=== PATIENT | male | born 1955 | race Caucasian/White ===

== ENCOUNTER → 2021-07-12 15:16 | Outpatient (BNVA) | payer OTHER, SELFPAY | PROVIDERS: PCP Physician Assistant Medical; Visit Provider Urology ==

== ENCOUNTER → 2022-07-24 08:54 | Outpatient (BNVA) | payer OTHER, SELFPAY | PROVIDERS: PCP Physician Assistant Medical; Visit Provider Urology | DX: Z13.89 Encounter for screening for other disorder (principal) ==

== ENCOUNTER → 2022-10-23 10:21 | Outpatient (BNVA) | payer OTHER, SELFPAY | PROVIDERS: PCP Physician Assistant Medical; Visit Provider Urology ==

== ENCOUNTER 2023-05-22 10:10 | Outpatient (AMB) | payer OTHER, SELFPAY ==
--- NOTE | 2023-05-22 10:22 | A.OFFVIS_ITS ---
Intake Intake Visit Reasons: PSA follow up(set) Intake Note: Patient is Present for Follow Up PSA Urology Medication: Alfuzosin, Finasteride, Sildenafil Antibiotic Allergies: None Blood Thinners: none PVR: Compliants: Allergies Seasonal Allergies Allergy (Mild, Verified 10/23/22 10:29) Unknown HPI HPI Comments History of Present Illness Details Kuldeep is a pleasant male. He is a patient of Dr Hawkins. He is seen for the following urologic conditions - elevated PSA - Lower urinary tract symptoms - erectile dysfunction Doing well with urination Happy with current voiding performance Can try stopping alfuzosin Discussed PSA result which is lowest that he has seen in many years Sildenafil still effective for erections 6 month follow-up lab work tele Elevated PSA with BPH Longstanding BPH Treatment with alfuzosin 10 mg and finasteride PSA that has ranged between 4.5 and 5.5 Prostate biopsy 11/25 negative PSA 11/29 3.9, 08/02 3.9, 06/01 2.2 Erectile Dysfunction Progressive Cardiovascular risk factors include heart attack at age 62, dyslipidemia, hypertensive Is able to obtain but cannot maintain erection Libido normal Trial sildenafil [facility] Medical History [place] (myocardial infarction) NSTEMI (non-ST elevated myocardial infarction) Actinic keratitis CAD (coronary artery disease) of artery bypass graft Heartburn Hyperlipidemia Sleep apnea Elevated PSA Renal stones Surgical History History of surgery Review of Systems Const Denies chills and Denies fever(s) Card Reports no additional complaints and Denies syncope Resp Denies cough GI Denies abdominal pain and Denies heartburn Reports as per HPI and Denies change in libido Neuro Denies syncope Psych Denies change in libido Endo Denies change in libido Physical Exam Const General: cooperative, healthy appearing, comfortable and no acute distress Orientation/consciousness: patient oriented x3 HEENT Face and sinus: Yes normal facial exam Mouth: moist mucous membranes Neck Neck: Yes normal visual inspection, Yes full ROM and Yes trachea midline Chest Chest palpation & inspection: normal inspection of the chest Resp Effort & Inspection: normal respiratory effort, able to speak in complete sentences and no respiratory distress GI Inspection: Yes normal to inspection Back/Spine/Pelvis Cervical Spine: normal cervical lordosis Thoracic/Lumbar Spine: thoracic and lumbar spine normal to inspection Skin General skin exam: no rashes or lesions noted Neuro General: patient oriented x3, gait normal, tone normal and moves all extremities Extrem General: Yes normal to inspection and Yes capillary refill normal Assessment & Plan Assessment & Plan (1) Elevated PSA: Code(s): R97.20 - Elevated prostate specific antigen [PSA] (2) Erectile dysfunction: Code(s): N52.9 - Male erectile dysfunction, unspecified (3) Renal stones: Code(s): N20.0 - Calculus of kidney Plan Six month follow-up lab work Orders: Orders Prostate Specific Antigen 6 Months R97.20 - Elevated prostate specific antigen [PSA] Patient Instructions: Imaging studies, laboratory and physical exam results were discussed and reviewed in detail. No major barriers to patient understanding were identified. An opportunity to ask questions regarding the treatment plan was provided. All questions were answered. The patient expressed understanding and agreement with the above treatment plan. The patient is aware they should contact our office by phone for worsening of their current condition or the appearance of new urologic symptoms. Compliance is encouraged with any medications and followup testing that is ordered. It is a privilege to participate in the urologic care of your patient. If you have any questions or concerns regarding treatment for the above conditions, or other urologic issues, please do not hesitate to contact me. The office telephone contact is [phone]. This note is constructed using voice recognition software. While every effort has been made to ensure accuracy supervisory civil engineer errors may have been included. Yours sincerely, Dr Alberto Tadeo MD, [facility] - Urology Providers of Expert, Compassionate Care for the Genitourinary System Coding Level of Care Code Est Pt Level 3 (01375) Diagnoses Elevated PSA R97.20 Erectile dysfunction N52.9 Renal stones N20.0
== END 2023-05-22 10:46 | disposition home or self-care (01) ==
PROVIDERS: PCP Physician Assistant Medical; Visit Provider Urology
DX: R97.20 Elevated prostate specific antigen [PSA] (principal); N52.9 Male erectile dysfunction, unspecified; N20.0 Calculus of kidney
CPT/HCPCS: 99213

== ENCOUNTER → 2023-05-22 10:10 | Outpatient (BNVA) | payer OTHER, SELFPAY | PROVIDERS: PCP Physician Assistant Medical; Visit Provider Urology ==

== ENCOUNTER 2023-11-19 08:52 | Outpatient (AMB) | payer OTHER, SELFPAY ==
--- NOTE | 2023-11-19 09:03 | MHC.OFFVIS ---
Intake Visit Reasons: 6m/PSA(set) Intake Note: Patient is Present for Follow Up PSA Urology Medication: Finasteride, Sildenafil Antibiotic Allergies:None Blood Thinners: None Patient states medication regimen is working well no issues Allergies Seasonal Allergies Allergy (Mild, Verified 11/19/23 09:10) Unknown HPI Comments Details: Kuldeep is a pleasant male. He is a patient of Dr Hawkins. He is seen for the following urologic conditions - elevated PSA - Lower urinary tract symptoms - erectile dysfunction Doing well with urination Happy with current voiding performance Off alfuzosin Cut back finasteride to Saturday, Saturday, Saturday Slight rise PSA Repeat in 6 months Sildenafil still effective for erections Elevated PSA with BPH Longstanding BPH Treatment with alfuzosin 10 mg and finasteride No family history of prostate issues PSA that has ranged between 4.5 and 5.5 Prostate biopsy 11/25 negative PSA 11/29 3.9, 08/02 3.9, 06/01 2.2, 10/31 3.2 Erectile Dysfunction Progressive Cardiovascular risk factors include heart attack at age 62, dyslipidemia, hypertensive Is able to obtain but cannot maintain erection Libido normal Uses intermittent sildenafil [facility] Medical History [place] (myocardial infarction) NSTEMI (non-ST elevated myocardial infarction) Actinic keratitis CAD (coronary artery disease) of artery bypass graft Heartburn Hyperlipidemia Sleep apnea Elevated PSA Renal stones Surgical History History of surgery Review of Systems Const Denies chills and Denies fever(s) Card Reports no additional complaints and Denies syncope Resp Denies cough GI Denies abdominal pain and Denies heartburn Reports as per HPI and Denies change in libido Neuro Denies syncope Psych Denies change in libido Endo Denies change in libido Physical Exam Const General: cooperative, healthy appearing, comfortable and no acute distress Orientation/consciousness: patient oriented x3 HEENT Face and sinus: Yes normal facial exam Mouth: moist mucous membranes Neck Neck: Yes normal visual inspection, Yes full ROM and Yes trachea midline Chest Chest palpation & inspection: normal inspection of the chest Resp Effort & Inspection: normal respiratory effort, able to speak in complete sentences and no respiratory distress GI Inspection: Yes normal to inspection Back/Spine/Pelvis Cervical Spine: normal cervical lordosis Thoracic/Lumbar Spine: thoracic and lumbar spine normal to inspection Skin General skin exam: no rashes or lesions noted Neuro General: patient oriented x3, gait normal, tone normal and moves all extremities Extrem General: Yes normal to inspection and Yes capillary refill normal Assessment & Plan Assessment & Plan (1) Erectile dysfunction: Code(s): N52.9 - Male erectile dysfunction, unspecified Category: Medical (2) Renal stones: Code(s): N20.0 - Calculus of kidney Category: Medical (3) Elevated PSA: Code(s): R97.20 - Elevated prostate specific antigen [PSA] Category: Medical Plan Six-month follow-up Orders: Orders Prostate Specific Antigen 6 Months R97.20 - Elevated prostate specific antigen [PSA] Medications: Refilled finasteride 5 mg PO DAILY 90 days 90 tabs 1RF N13.8 - Other obstructive and reflux uropathy, N40.1 - Benign prostatic hyperplasia with lower urinary tract symptoms, R33.9 - Retention of urine, unspecified, R97.20 - Elevated prostate specific antigen [PSA] Patient Instructions: Imaging studies, laboratory and physical exam results were discussed and reviewed in detail. No major barriers to patient understanding were identified. An opportunity to ask questions regarding the treatment plan was provided. All questions were answered. The patient expressed understanding and agreement with the above treatment plan. The patient is aware they should contact our office by phone for worsening of their current condition or the appearance of new urologic symptoms. Compliance is encouraged with any medications and followup testing that is ordered. It is a privilege to participate in the urologic care of your patient. If you have any questions or concerns regarding treatment for the above conditions, or other urologic issues, please do not hesitate to contact me. The office telephone contact is [phone]. This note is constructed using voice recognition software. While every effort has been made to ensure accuracy director of convention services errors may have been included. Yours sincerely, Dr Alberto Tadeo MD, [facility] - Urology Providers of Expert, Compassionate Care for the Genitourinary System Coding Level of Care Code Est Pt Level 3 (43709) Diagnoses Erectile dysfunction N52.9 Renal stones N20.0 Elevated PSA R97.20
== END 2023-11-19 09:56 | disposition home or self-care (01) ==
PROVIDERS: PCP Physician Assistant Medical; Visit Provider Urology
DX: N52.9 Male erectile dysfunction, unspecified (principal); N20.0 Calculus of kidney; R97.20 Elevated prostate specific antigen [PSA]
CPT/HCPCS: 99213

== ENCOUNTER → 2023-11-19 08:52 | Outpatient (BNVA) | payer OTHER, SELFPAY | PROVIDERS: PCP Physician Assistant Medical; Visit Provider Urology ==

== ENCOUNTER 2024-05-21 08:33 | Outpatient (AMB) | payer OTHER, SELFPAY ==
--- NOTE | 2024-05-21 08:35 | MHC.OFFVIS ---
Intake Visit Reasons: 6M/PSA(set) Intake Note: Patient is present for 6M/PSA Urology Medication: Antibiotic Allergy:SILDENAFIL,FINASTERIDE Blood Thinner:NONE Indoor Plant Technician Required: No Allergies Seasonal Allergies Allergy (Mild, Verified 05/21/24 08:36) Unknown HPI Comments Details: Kuldeep is a pleasant male. He is a patient of Dr Hawkins. He is seen for the following urologic conditions - elevated PSA - Lower urinary tract symptoms - erectile dysfunction Six-month follow-up PSA remained stable Monotherapy finasteride Saturday, Saturday, Saturday Sildenafil still effective for erections Elevated PSA with BPH Longstanding BPH Treatment with alfuzosin 10 mg and finasteride No family history of prostate issues PSA that has ranged between 4.5 and 5.5 Prostate biopsy 11/25 negative PSA 11/29 3.9, 08/02 3.9, 06/01 2.2, 10/31 3.2, 06/02 3.1 Erectile Dysfunction Progressive Cardiovascular risk factors include heart attack at age 62, dyslipidemia, hypertensive Is able to obtain but cannot maintain erection Libido normal Uses intermittent sildenafil [facility] Medical History [place] (myocardial infarction) NSTEMI (non-ST elevated myocardial infarction) Actinic keratitis CAD (coronary artery disease) of artery bypass graft Heartburn Hyperlipidemia Sleep apnea Elevated PSA Renal stones Surgical History History of surgery Review of Systems Const Denies chills and Denies fever(s) Card Reports no additional complaints and Denies syncope Resp Denies cough GI Denies abdominal pain and Denies heartburn Reports as per HPI and Denies change in libido Neuro Denies syncope Psych Denies change in libido Endo Denies change in libido Physical Exam Const General: cooperative, healthy appearing, comfortable and no acute distress Orientation/consciousness: patient oriented x3 HEENT Face and sinus: Yes normal facial exam Mouth: moist mucous membranes Neck Neck: Yes normal visual inspection, Yes full ROM and Yes trachea midline Chest Chest palpation & inspection: normal inspection of the chest Resp Effort & Inspection: normal respiratory effort, able to speak in complete sentences and no respiratory distress GI Inspection: Yes normal to inspection Back/Spine/Pelvis Cervical Spine: normal cervical lordosis Thoracic/Lumbar Spine: thoracic and lumbar spine normal to inspection Skin General skin exam: no rashes or lesions noted Neuro General: patient oriented x3, gait normal, tone normal and moves all extremities Extrem General: Yes normal to inspection and Yes capillary refill normal Assessment & Plan Assessment & Plan (1) Elevated PSA: Code(s): R97.20 - Elevated prostate specific antigen [PSA] Category: Medical (2) Erectile dysfunction: Code(s): N52.9 - Male erectile dysfunction, unspecified Category: Medical Plan Continue current medications Orders: Orders Prostate Specific Antigen 364 Days R97.20 - Elevated prostate specific antigen [PSA] Medications: Refilled sildenafil administer 60 minutes before intended activity 100 mg PO ONCE PRN 30 tabs 1RF sexual activity 30 days E11.69 - Type 2 diabetes mellitus with other specified complication, N52.1 - Erectile dysfunction due to diseases classified elsewhere, N52.9 - Male erectile dysfunction, unspecified Patient Instructions: Imaging studies, laboratory and physical exam results were discussed and reviewed in detail. No major barriers to patient understanding were identified. An opportunity to ask questions regarding the treatment plan was provided. All questions were answered. The patient expressed understanding and agreement with the above treatment plan. The patient is aware they should contact our office by phone for worsening of their current condition or the appearance of new urologic symptoms. Compliance is encouraged with any medications and followup testing that is ordered. It is a privilege to participate in the urologic care of your patient. If you have any questions or concerns regarding treatment for the above conditions, or other urologic issues, please do not hesitate to contact me. The office telephone contact is [phone]. This note is constructed using voice recognition software. While every effort has been made to ensure accuracy deputy bailiff errors may have been included. Yours sincerely, Dr Alberto Tadeo MD, [facility] - Urology Providers of Expert, Compassionate Care for the Genitourinary System Coding Level of Care Code Est Pt Level 3 (45838) Diagnoses Elevated PSA R97.20 Erectile dysfunction N52.9
== END 2024-05-21 09:25 | disposition home or self-care (01) ==
PROVIDERS: PCP Physician Assistant Medical; Visit Provider Urology
DX: R97.20 Elevated prostate specific antigen [PSA] (principal); N52.9 Male erectile dysfunction, unspecified
CPT/HCPCS: 99213

== ENCOUNTER → 2024-05-21 08:33 | Outpatient (BNVA) | payer OTHER, SELFPAY | PROVIDERS: PCP Physician Assistant Medical; Visit Provider Urology ==

== ENCOUNTER 2025-05-25 08:27 | Outpatient (AMB) | payer OTHER, SELFPAY ==
--- OUTSIDE RECORDS SUMMARY | 2025-05-20 07:55 | XMS_ITS | Encounter Summary ---
[facility] [place] [address] Care Team Providers Care Baby Formula Mixer Name Role Phone Enrico Hawkins Primary Care Provider [phone] Reason for Referral * Hospital - Outpatient (Routine) - Closed Specialty Diagnoses / Procedures Referred By Cristy mera Referred To Contact Gastroenterology Diagnoses Colon cancer screening Procedures COLONOSCOPY Anesthesia - MAC; [facility] ENDOSCOPY Spencer Brownlee MD [address] [address] Phone: tel: fax: [facility] Endoscopy [address] [place] [address] Phone: tel: Referral ID Status Reason Start Date Expiration Date Visits Re quested Visits Authorized [id number] Closed 03/25/2025 03/25/2026 1 1 Reason for Visit * Auth/Cert (Routine) Specialty Diagnoses / Procedures Referred By Cristy mera Referred To Contact Diagnoses Encounter for screening for malignant neoplasm of colon Procedures COLONOSCOPY [place] [address] [facility] Endoscopy [address] [place] [address] Phone: tel: Referral ID Status Reason Start Date Expiration Date Visits Re quested Visits Authorized [id number] 1 1 Encounter Details Date Type Department Care Team (Latest Contact Info) Description 05/20/2025 7:55 AM EST - 05/20/2025 11:59 PM EST Hospital Encounter [facility] Endoscopy [address] [place] [address] Juan Luis Walton MD [address] [facility] [address] [place] [address] Spencer Brownlee MD 299 [facility] [address] [place] [address] Dimas Colvin CRNA [address] [place] [address] Colon cancer screening Discharge Disposition: Home or Self Care Social History Tobacco Use Types Packs/Day Years Used Date Smoking Tobacco: Never Smokeless Tobacco: Never Alcohol Use Standard Drinks/Week Comments Yes 8 (1 standard drink = 0.6 oz pur e alcohol) WEEKENDS Housing Instability Answer Date Recorde d Are you worried that in the next 2 months you may not have stable housing? No 09/23/2024 Food Access & Nutrition Answer Date Rec orded Do you have access to a vari ety of food including fruits and vegetables? Yes 09/23/2024 Access to Healthcare Answer Date Record ed Within the last 3 months, alyssa noe many times did you visit the emergency department for your medical care? 0 09/23/2024 Health Literacy Answer Date Recorded How often do you need to hav e someone help you when you read instructions, pamphlets, or other written material from your doctor or pharmacy? Never 09/23/2024 Caregiver: How often do you need to have someone help you when you read instructions, pamphlets, or other written material from your doctor or pharmacy? Not on file 09/23/2024 Financial Risk Answer Date Recorded How hard is it for you to pa y for the very basics like food, housing, medical care, and air conditioning / heating? Not very hard 09/23/2024 Transportation Answer Date Recorded Has the lack of transportati on kept you from meetings, work, or from getting things needed for daily living? No Has the lack of transportati on kept you from medical appointments or from getting medications? No 09/23/2024 Social Isolation Answer Date Recorded How often do you feel lonely or isolated from th ose around you? Never 09/23/2024 Food Risk Answer Date Recorded Within the past 12 months we worried whether our food would run out before we got money to buy more. Never true 09/23/2024 Within the past 12 months th e food we bought just didn't last and we didn't have money to get more. Never true 09/23/2024 Dependent Care Answer Date Recorded Do you need help finding or paying for care for your loved ones. For example, children's court magistrate or elderly care for an older adult? No 09/23/2024 Education Answer Date Recorded Do you think completing more education or training, like finishing a GED, going to college, or learning a trade, would be helpful for you? N/A 09/23/2024 Employment and Income Answer Date Recor ded During the last four weeks, have you been actively looking for work? No 09/23/2024 Living Situation Answer Date Recorded What is your living situation? 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 Not on file Not on file Not on file documented as of this encounter Last Filed Vital Signs Vital Sign Reading Time Taken Comments Blood Pressure 139/91 05/20/2025 10:18 AM EST Pulse 67 05/20/2025 10:18 AM EST Temperature 36.7 C (98.1 F) 05/20/2025 9:58 AM EST Respiratory Rate 20 05/20/2025 10:18 AM EST Oxygen Saturation 100% 05/20/2025 10:18 AM EST Inhaled Oxygen Concentration - - Weight 85.7 kg (189 lb) 05/20/2025 8:56 AM EST Height 177.8 cm (5' 10 ) 05/20/2025 8:56 AM EST Body Mass Index 27.12 05/20/2025 8:56 AM EST documented in this encounter Discharge Instructions * Attachments The following attachments cannot be sent through Care Everywhere. * Colonoscopy: Post op (Swedish) * Diverticulosis (Swedish) * Colon Polyps (Swedish) documented in this encounter Medications at Time of Discharge acetaminophen (TYLENOL 8 HOUR) 650 mg 8 hr tablet Take 1 tablet (650 mg total) by mouth every 8 (eight) hours if needed. 12/10/2023 aspirin 81 mg EC tablet Take 1 tablet (81 mg total) by mouth 1 (one) time each day. 04/10/2012 atorvastatin (LIPITOR) 80 mg tablet Take 1 tablet (80 mg total) by mouth 1 (one) time each day. 90 tablet 3 07/20/2024 azelastine (ASTELIN) 137 mcg (0.1 %) nasal spray ADMINISTER 2 SPRAYS INTO EACH NOSTRIL 2 TIMES A DAY. 30 mL 1 04/20/2025 bisacodyL (DULCOLAX) 5 mg EC tablet Take 2 tablets by mouth right before beginning bowel prep. See instructions provided by the office 2 tablet 05/03/2025 buPROPion SR (WELLBUTRIN SR) 200 mg 12 hr tablet TAKE 1 TABLET BY MOUTH TWICE DAILY 180 tablet 3 02/01/2025 cetirizine (ZyrTEC) 10 mg tablet Take 1 tablet (10 mg total) by mouth 1 (one) time each day. 04/15/2023 diclofenac (VOLTAREN) 1 % topical gel Apply 2 g topically 2 (two) times a day. 180 g 11 09/30/2024 FA/niacinamide/cu pric ox/Zn ox (TL NICOTINAMIDE ORAL) Take by mouth. Take one capsule twice daily finasteride (PROSCAR) 5 mg tablet 1 Tab mon, wens, fri 03/23/2024 fluticasone propionate (FLONASE) 50 mcg/actuation nasal spray 03/31/2024 ibuprofen (ADVIL,MOTRIN) 800 mg tablet TAKE 1 TABLET BY MOUTH EVERY 8 HOURS NEEDED FOR PAIN 90 tablet 1 05/19/2024 losartan (Cozaar) 25 mg tablet Take 1 tablet (25 mg total) by mouth 1 (one) time each day. 30 each 5 01/26/2025 metoprolol succinate (TOPROL-XL) 25 mg 24 hr tablet Take 1 tablet (25 mg total) by mouth 1 (one) time each day. Do not crush or chew. 90 each 2 12/04/2024 montelukast (SINGULAIR) 10 mg tablet TAKE 1 TABLET BY MOUTH EVERYDAY AT BEDTIME 90 tablet 1 04/01/2025 mv-min/folic/vit K/lycop/coQ10 (DAILY MULTIVITAMIN ORAL) 1 po qd omeprazole (PriLOSEC) [address] capsule every other day. 4 times a week 01/15/2018 polyethylene glycol (Golytely) 236-22.74-6.74 -5.86 gram solution Take 4L by mouth once for one dose. May substitue any PEG. Starting at 2PM the day before your procedure drink 1 8oz glasses at your own pace until you complete half of the gallon. Finish 2nd half of the gallon at 8PM. 4000 mL 05/03/2025 tiZANidine (ZANAFLEX) 4 mg tablet Take 1 tablet (4 mg total) by mouth 3 (three) times a day if needed for muscle spasms. 30 tablet 01/18/2025 UNABLE TO FIND CPAP Historical (HISTORICAL CPAP) Sig - Route: Inhale 7 cm into the lungs at bedtime. Via nasal mask, SMS - Inhalation vit C/E/Zn/coppr/lute in/zeaxan (PRESERVISION AREDS-2 ORAL) Take by mouth daily. documented as of this encounter Discharge Disposition Disposition Code Departure Means Destination Home or Self Care documented in this encounter Progress Notes * Jonny Mixon RN - 05/20/2025 9:00 AM EST Problem: Cognitive:Periop Procedure - Minor Goal: Knowledge of disease or condition will improve Outcome: Adequate for Discharge Problem: Sensory:Periop Procedure - Minor Goal: Demonstrates/reports adequate pain control Outcome: Adequate for Discharge * Gisela Kwong RN - 05/20/2025 8:49 AM EST Problem: Cognitive:Periop Procedure - Minor Goal: Knowledge of disease or condition will improve Outcome: Progressing Problem: Sensory:Periop Procedure - Minor Goal: Demonstrates/reports adequate pain control Outcome: Progressing PATIENT VERBALIZES UNDERSTANDING OF DISCHARGE INSTRUCTIONS documented in this encounter H&P Notes * Spencer Brownlee MD - 05/20/2025 9:00 AM EST Pre-Op Diagnosis: Screen Proposed Procedure: colon Performing Surgeon/MD/Endoscopist: Spencer Brownlee MD Medical/History: Medical History[1]Surgical History[2] Medications/Allergies: Prior to Admission medications Medication Sig Start Date End Date Taking? Authorizing Provider aspirin 81 mg EC tablet Take 1 tablet (81 mg total) by mouth 1 (one) time each day. 04/10/12 Yes Historical Provider, atorvastatin (LIPITOR) 80 mg tablet Take 1 tablet (80 mg total) by mouth 1 (one) time each day. 07/20/24 Yes ELIO Gooden azelastine (ASTELIN) 137 mcg (0.1 %) nasal spray ADMINISTER 2 SPRAYS INTO EACH NOSTRIL 2 TIMES A DAY. 04/20/25 Yes ELIO Kimball cetirizine (ZyrTEC) 10 mg tablet Take 1 tablet (10 mg total) by mouth 1 (one) time each day. 04/15/23 Yes Historical Provider, finasteride (PROSCAR) 5 mg tablet 1 Tab sat, , sat03/23/24 Yes Historical Provider, fluticasone propionate (FLONASE) 50 mcg/actuation nasal spray 03/31/24 Yes Historical Provider, acetaminophen (TYLENOL 8 HOUR) 650 mg 8 hr tablet Take 1 tablet (650 mg total) by mouth every 8 (eight) hours if needed. 12/10/23 Historical Provider, bisacodyL (DULCOLAX) 5 mg EC tablet Take 2 tablets by mouth right before beginning bowel prep. See instructions provided by the office 05/03/25 Spencer Brownlee MD buPROPion SR (WELLBUTRIN SR) 200 mg 12 hr tablet TAKE 1 TABLET BY MOUTH TWICE DAILY 02/01/25 ELIO Charles diclofenac (VOLTAREN) 1 % topical gel Apply 2 g topically 2 (two) times a day. 09/30/24 ELIO Gooden FA/niacinamide/cupric ox/Zn ox (TL NICOTINAMIDE ORAL) Take by mouth. Take one capsule twice daily Historical Provider, ibuprofen (ADVIL,MOTRIN) 800 mg tablet TAKE 1 TABLET BY MOUTH EVERY 8 HOURS NEEDED FOR PAIN 05/19/24 ELIO Gooden losartan (Cozaar) 25 mg tablet Take 1 tablet (25 mg total) by mouth 1 (one) time each day. 01/26/25 ELIO Kimball metoprolol succinate (TOPROL-XL) 25 mg 24 hr tablet Take 1 tablet (25 mg total) by mouth 1 (one) time each day. Do not crush or chew. 12/04/24 Bobo Talley NP montelukast (SINGULAIR) 10 mg tablet TAKE 1 TABLET BY MOUTH EVERYDAY AT BEDTIME 04/01/25 ELIO Kimball mv-min/folic/vit K/lycop/coQ10 (DAILY MULTIVITAMIN ORAL) 1 po qd Historical Provider, omeprazole (PriLOSEC) [address] capsule every other day. 4 times a week 01/15/18 Historical Provider, polyethylene glycol (Golytely) 236-22.74-6.74 -5.86 gram solution Take 4L by mouth once for one dose. May substitue any PEG. Starting at 2PM the day before your procedure drink 1 8oz glasses at your own pace until you complete half of the gallon. Finish 2nd half of the gallon at 8PM. 05/03/25 Kaykay Brownlee MD tiZANidine (ZANAFLEX) 4 mg tablet Take 1 tablet (4 mg total) by mouth 3 (three) times a day if needed for muscle spasms. 01/18/25 Jocelyn Davis MD UNABLE TO FIND CPAP Historical (HISTORICAL CPAP) Sig - Route: Inhale 7 cm into the lungs at bedtime. Via nasal mask, SMS - Inhalation Historical Provider, vit C/E/Zn/coppr/lutein/zeaxan (PRESERVISION AREDS-2 ORAL) Take by mouth daily. Historical Provider, Patient Age:69 y.o. Vitals: Vitals: 05/20/25 0856 BP: (!) 168/103 Pulse: 85 Resp: 20 Temp: 35.9 ??C (96.7 ??F) SpO2: 99% Physical Exam: Mental Status: Clear HEENT: WNL Heart: WNL Lungs: WNL Abdomen: WNL Extremities: WNL Neuro: WNL Labs: Imaging: Diagnosis/Plan: Colonoscopy [1] Past Medical History: Diagnosis Date Actinic keratosis, hx of CAD (coronary artery disease) Elevated PSA 01/15/[address] goode 2017 Esophageal reflux Essential hypertension, benign 11/25/2008 Heart attack (CMS/HCC V24, CMS/HCC V28) Hyperlipidemia Interstitial lung disease (CMS/HCC V24, CMS/HCC V28) CHRONIC SCC (squamous cell carcinoma), ear 02/17/2021 Septic olecranon bursitis 05/18/2011 [2] Past Surgical History: Procedure Laterality Date CATARACT EXTRACTION COLONOSCOPY 06/10/2004 : diverticulosis COLONOSCOPY 06/10/2014 Diverticulosis; no polyps. CORONARY ANGIOPLASTY WITH STENT PLACEMENT ESOPHAGOGASTRODUODENOSCOPY 06/10/2012 normal on PPI rx documented in this encounter Procedure Notes * Jonny Mixon RN - 05/20/2025 9:00 AM EST Pt alert and oriented Tolerating po intake well Md bedside to speak with pt Call tirado bedside All belongings returned to pt documented in this encounter Plan of Treatment Not on file documented as of this encounter Procedures Procedure Name Priority Date/Time Associated Diagnosis Comments COLONOSCOPY Routine 05/20/2025 9:57 AM EST Colon cancer screening TISSUE EXAM Routine 05/20/2025 9:46 AM EST Colon cancer screening documented in this encounter Results * COLONOSCOPY Anesthesia - MAC; [facility] ENDOSCOPY (05/20/2025 9:57 AM EST) Anatomical Region Laterality Modality Endoscopy 05/20/2025 9:34 AM EST Impressions 05/20/2025 9:58 AM EST - One 2 mm polyp in the cecum. Biopsied. - One 6 mm polyp in the cecum, removed with a cold snare. Resected and retrieved. - Diverticulosis in the sigmoid colon and in the descending colon. - The examination was otherwise normal on direct and retroflexion views. Recommendation: - Await pathology results. - Repeat colonoscopy in 5 years for surveillance. Narrative 05/20/2025 9:58 AM EST [facility] GI Patient Name: Kuldeep Lima Procedure Date: 05/20/2025 9:34 AM Date of : 1955 Age: 69 Room: ROOM 16 Gender: Male Note Status: Finalized Attending MD: Spencer Brownlee MD, Procedure Date No Time: 05/20/2025 Procedure: Colonoscopy Indications: Screening for colorectal malignant neoplasm Providers: Spencer Brownlee MD Referring MD: Spencer Brownlee MD Medicines: Propofol per Anesthesia Complications: No immediate complications. Estimated Blood Loss: Estimated blood loss was minimal. Procedure: Pre-Anesthesia Assessment: - ASA Grade Assessment: II - A patient with mild systemic disease. After I obtained informed consent, the scope was passed under direct vision. Throughout the procedure, the patient's blood pressure, pulse, and oxygen saturations were monitored continuously.The Colonoscope was introduced through the anus and advanced to the cecum, identified by appendiceal orifice and ileocecal valve. The colonoscopy was performed without difficulty. The patient tolerated the procedure well. The quality of the bowel preparation was good. Findings: The perianal and digital rectal examinations were normal. A 2 mm polyp was found in the cecum. The polyp was sessile. This was biopsied with a cold jumbo forceps for histology. A 6 mm polyp was found in the cecum. The polyp was sessile. The polyp was removed with a cold snare. Resection and retrieval were complete. Multiple diverticula were found in the sigmoid colon and descending colon. The exam was otherwise without abnormality on direct and retroflexion views. Procedure Code(s): --- Professional --- 11487, Colonoscopy, flexible; with removal of tumor(s), polyp(s), or other lesion(s) by snare technique 11540, 59, Colonoscopy, flexible; with biopsy, single or multiple Diagnosis Code(s): --- Professional --- Z12.11, Encounter for screening for malignant neoplasm of colon D12.0, Benign neoplasm of cecum K57.30, Diverticulosis of large intestine without perforation or abscess without bleeding CPT copyright 2020 [employer]. All rights reserved. The codes documented in this report are preliminary and upon head grinder review may be revised to meet current compliance requirements. Spencer Brownlee MD 05/20/2025 9:58:33 AM This report has been signed electronically.Spencer Brownlee MD Number of Addenda: 0 Note Initiated On: 05/20/2025 9:34 AM Scope In: Scope Out: Endoscopy Department at [facility] - [address] [place] [id number] Procedure Note Spencer Brownlee MD - 05/20/2025 [facility] GI Patient Name: Kuldeep Lima Procedure Date: 05/20/2025 9:34 AM Date of : 1955 Age: 69 Room: ROOM 16 Gender: Male Note Status: Finalized Attending MD: Spencer Brownlee MD, Procedure Date No Time: 05/20/2025 Procedure: Colonoscopy Indications: Screening for colorectal malignant neoplasm Providers: Spencer Brownlee MD Referring MD: Spencer Brownlee MD Medicines: Propofol per Anesthesia Complications: No immediate complications. Estimated Blood Loss: Estimated blood loss was minimal. Procedure: Pre-Anesthesia Assessment: - ASA Grade Assessment: II - A patient with mild systemic disease. After I obtained informed consent, the scope was passed under direct vision. Throughout theprocedure, the patient's blood pressure, pulse, and oxygen saturations were monitored continuously.The Colonoscope was introduced through the anus and advanced to the cecum, identified by appendiceal orifice and ileocecal valve. The colonoscopy was performed without difficulty. The patient tolerated the procedure well. The quality of the bowel preparation was good. Findings: The perianal and digital rectal examinations were normal. A 2 mm polyp was found in the cecum. The polyp was sessile. This was biopsied with a cold jumboforceps for histology. A 6 mm polyp was found in the cecum. The polyp was sessile. The polyp was removed with a cold snare. Resection and retrieval were complete. Multiple diverticula were found in the sigmoidcolon and descending colon. The exam was otherwise without abnormality ondirect and retroflexion views. Procedure Code(s): --- Professional --- 76284, Colonoscopy, flexible; with removal of tumor(s), polyp(s), or other lesion(s) by snare technique 48673, 59, Colonoscopy, flexible; with biopsy,single or multiple Diagnosis Code(s): --- Professional --- Z12.11, Encounter for screening for malignantneoplasm of colon D12.0, Benign neoplasm of cecum K57.30, Diverticulosis of large intestine without perforation or abscess without bleeding CPT copyright 2020 [employer]. All rights reserved. The codes documented in this report are preliminary and upon head grinder reviewmay be revised to meet current compliance requirements. Spencer Brownlee MD 05/20/2025 9:58:33 AM This report has been signed electronically.Spencer Brownlee MD Number of Addenda: 0 Note Initiated On: 05/20/2025 9:34 AM Scope In: Scope Out: Endoscopy Department at [facility] - [address] [place] [id number] IMPRESSION: - One 2 mm polyp in the cecum. Biopsied. - One 6 mm polyp in the cecum, removed with a cold snare. Resected and retrieved. - Diverticulosis in the sigmoid colon and in the descending colon. - The examination was otherwise normal on directand retroflexion views. Recommendation: - Await pathology results. - Repeat colonoscopy in 5 years for surveillance. us Spencer Brownlee MD GI~PROCEDURE ORDERABLES Fin al Result * Tissue exam (05/20/2025 9:46 AM EST) Final Diagnosis Cecum, polyps x 2: Tubular adenomas, fragmented. 05/21/2025 2:17 PM EST [facility] at 1416 EST Gross Description A. Large Intestine, Cecum, polypX2: Labeled colon, cecum polyp x 2 . Received in yellow-tinged formalin are four irregular soft dixon tissue fragments admixed with fecal material approximately measuring 0.3 cm to 0.4 cm at greatest diameters. The specimen is wrapped in paper and submitted in toto in one cassette, four pieces, multiple levels. Av/DG 05/21/2025 2:17 PM EST [facility] Disclaimer Unless otherwise specified, all tissue is 10% NB formalin fixed and paraffin embedded. 05/21/2025 2:17 PM EST [facility] Tissue Cecum structure / Unknown 05/20/2025 9:46 AM EST 05/20/2025 10:54 AM EST us Spencer Brownlee MD LAB PATHOLOGY ORDERABLES Fi nal Result [facility] [address] [place] [address], documented in this encounter Visit Diagnoses Diagnosis Colon cancer screening Special screening for malignant neoplasms, colon documented in this encounter Orders Discharge Count Last Ordered Date First Orde red Date DISCHARGE PATIENT 1 05/20/2025 documented in this encounter Additional Health Concerns Assessment Noted Time PHQ-9 Depression Total Score: 0 09/24/19 25 8:06 PM EDT A fall risk assessment has been complete d for the patient 02/18/2025 12:43 PM EDT documented as of this encounter Care Teams Baby Formula Mixer Relationship Specialty Start Date End Date Enrico Hawkins PA [address] [place] [address] PCP - General Internal Medicine 01/03/21 documented as of this encounter
--- OUTSIDE RECORDS SUMMARY | 2025-05-20 09:37 | XMS_ITS | Encounter Summary ---
[facility] Address [address] [place] [id number] Care Team Providers Care Scale Reclamation Tender Name Role Phone Enrico Hawkins Primary Care Provider [phone] Reason for Visit * Auth/Cert (Routine) Specialty Diagnoses / Procedures Referred By Cristy t Referred To Contact Diagnoses Encounter for screening for malignant neoplasm of colon Procedures COLONOSCOPY [facility] [id number] [place] [phone] [facility] [address] [place] [address] Phone: tel: Referral ID Status Reason Start Date Expiration Date Visits Re quested Visits Authorized [id number] 1 1 Encounter Details Date Type Department Care Team (Late st Contact Info) Description 05/20/2025 9:37 AM EST Anesthesia Event [facility] [address] [place] [address] Juan Luis Walton MD [address] [place] [address] [address] [place] [address] Anesthesia Record Procedure Summary Procedure Name Responsible Anesthesiologist Anesthesia Start Time Anesthesia Stop Time COLONOSCOPY Juan Luis Walton MD 05/20/25 0937 5 1000 Events Date Time Event Comment 05/20/2025 0854 0937 In Room 0937 An Start 0937 An Start Data The patient wa s reevaluated immediately before moderate or deep sedation use and before anesthesia induction. 0942 Anesthesia Ready 0956 an stop data 0957 Out of Room 0959 Handoff to RN I completed my handoff to the receiving nurse during which we: 1. Identified the patient 2. Identified the responsible provider 3. Reviewed the pertinent medical history 4. Discussed the surgical course 5. Reviewed intra-op anesthesia management and issues during anesthesia 6. Set expectations for post-procedure period 7. Allowed opportunity for questions and acknowledgement of understanding. 1000 An Stop Meds Name Total propofol (DIPRIVAN) injection 10 mg/mL 2 30 mg lidocaine PF (XYLOCAINE-MPF) local injec tion 2% 50 mg lactated Ringer's infusion 350 mL * Agents No agents on file. * Blood No blood administrations on file. Lines, Drains, and Airways Type Details Placement Removal Peripheral IV Placement Date: 05/10 07/04; Placement Time: 0856; Catheter Size: 20 G; Orientation: Right; Location: Antecubital; Site Prep: Chlorhexidine; Insertion Attempts: 1; Patient Tolerance: Tolerated well; Removal Date: 05/20/25; Removal Time: 1019 05/20/25 0856 by Gisela Kwong RN 05/20/25 1019 by Eliu Sutherland RN documented in this encounter Social History Tobacco Use Types Packs/Day Years [...] Record ed Within the last 3 months, ho w many times did you visit the emergency [...] care for your loved ones. For example, child custody evaluator or elderly care for an older adult? 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 Not on file Not on file Not on file documented as of this encounter Progress Notes * Dimas Colvin CRNA - 05/20/2025 9:59 AM EST Patient: Kuldeep Lima Procedure Summary Date: 05/20/25 Room / Location: [facility] Anesthesia Start: 936 Anesthesia Stop: Procedure: COLONOSCOPY Diagnosis: Colon cancer screening (Screening for colorectal malignant neoplasm) Scheduled Providers: Juan Luis Walton MD; Spencer Brownlee MD; Dimas Colvin CRNA Responsible Provider: Juan Luis Walton MD Anesthesia Type: MAC ASA Status: 3 Anesthesia Plan: MAC Last Vitals: Vitals Value Taken Time BP 128/97 05/20/25 09:59 Temp na 05/20/25 09:59 Pulse 72 05/20/25 09:59 Resp 16 05/20/25 09:59 SpO2 99 05/20/25 09:59 No data recorded Anesthesia Post Evaluation Patient location during evaluation: PACU Patient participation: complete - patient participated Level of consciousness: awake and alert Pain score: 0 Pain management: adequate Airway patency: patent Anesthetic complications: no Cardiovascular status: acceptable Respiratory status: acceptable Hydration status: acceptable Nausea: No Vomiting: No There were no known notable events for this encounter. * Juan Luis Walton MD - 05/20/2025 8:46 AM EST 69 y.o. male scheduled for Colon cancer screening [COLONOSCOPY] Ht Readings from Last 1 Encounters: 02/18/25 1.791 m (70.5 ) Wt Readings from Last 1 Encounters: 02/18/25 85.3 kg (188 lb) There is no height or weight on file to calculate BMI. Medical History[1] Surgical History[2] Anesthesia complications Denies Allergies[3] Prior to Admission medications Medication Sig Start Date End Date Taking? Authorizing Provider acetaminophen (TYLENOL 8 HOUR) 650 mg 8 hr tablet Take 1 tablet (650 mg total) by mouth every 8 (eight) hours if needed. 12/10/23 Historical Provider, aspirin 81 mg EC tablet Take 1 tablet (81 mg total) by mouth 1 (one) time each day. 04/10/12 Historical Provider, atorvastatin (LIPITOR) 80 mg tablet Take 1 tablet (80 mg total) by mouth 1 (one) time each day. 07/20/24 ELIO Gooden azelastine (ASTELIN) 137 mcg (0.1 %) nasal spray ADMINISTER 2 SPRAYS INTO EACH NOSTRIL 2 TIMES A DAY. 04/20/25 ELIO Kimball bisacodyL (DULCOLAX) 5 mg EC tablet Take 2 tablets by mouth right before beginning bowel prep. See instructions provided by the office 05/03/25 Spencer Brownlee MD buPROPion SR (WELLBUTRIN SR) 200 mg 12 hr tablet TAKE 1 TABLET BY MOUTH TWICE DAILY 02/01/25 ELIO Charles cetirizine (ZyrTEC) 10 mg tablet Take 1 tablet (10 mg total) by mouth 1 (one) time each day. 04/15/23 Historical Provider, diclofenac (VOLTAREN) 1 % topical gel Apply 2 g topically 2 (two) times a day. 09/30/24 ELIO Gooden FA/niacinamide/cupric ox/Zn ox (TL NICOTINAMIDE ORAL) Take by mouth. Take one capsule twice daily Historical Provider, finasteride (PROSCAR) 5 mg tablet 1 Tab sat, , sat03/23/24 Historical Provider, fluticasone propionate (FLONASE) 50 mcg/actuation nasal spray 03/31/24 Historical Provider, ibuprofen (ADVIL,MOTRIN) 800 mg tablet [...] ORAL) Take by mouth daily. Historical Provider, I have personally reviewed all the patient's medications with them prior to anesthesia. Current In-hospital Medications MEDSSCHEDULED[4] MEDSCONTINUOUS[5] MEDSPRN[6] Social History[7] Is the patient a current smoker (e.g. cigarette, cigar, pip, e-cigarette, or mariajuana)? Yes [] No[] Patient previously instructed to abstain from smoking on the day of procedure? Yes [] No[] Patient smoked on the day of procedure? Yes [] No[] ASPIRE smoking VBR: [] Not interested in quitting [] Interested in quitting- referred to treatment [] Interested in quitting - treatment provided Visit Vitals Smoking Status Never LABS: No results found for: WBC , HGB , HCT , MCV , PLT Lab Results Component Value Date GLUCOSE 112 (H) 02/16/2025 CALCIUM 9.4 02/16/2025 NA 138 02/16/2025 K 4.0 02/16/2025 CO2 25 02/16/2025 CL 107 02/16/2025 BUN 11 02/16/2025 CREATININE 0.94 02/16/2025 No results found for: INR , PROTIME No results found for: PTT Relevant Problems Cardio (+) CAD (coronary artery disease) (+) Essential hypertension, benign Pulmonary (+) Sleep apnea Other (+) Actinic keratosis (+) SCC (squamous cell carcinoma), ear Clinical information reviewed: Allergies Anesthesia Plan ASA 3 Anesthesia Plan: MAC Anesthesia Considerations MAC Anesthesia Risks Discussed allergic reaction, dental injury, nausea, serious complications, pain, sore throat and corneal abrasion Plan Factors Patient is not a current smoker Smoking cessation education has not been provided Induction method: intravenous Anesthetic plan and risks discussed with patient. Anesthesia Plan discussed with CHANNEL SALES MANAGER. Anesthesia Evaluation History of anesthetic complications Airway Mallampati: II Thyromental distance: >3 FB Neck ROM: fullnot intubatedno noted risk Dental - normal exam Pulmonary breath sounds clear to auscultation (+) sleep apnea ROS comment: Chronic interstitial lung disease - recent Diagnosis on CT after episode of Pneumonia,Being followed by Pulmonology. No O2 or inhalers needed Cardiovascular (+) hypertension, past IA, CAD, CABG/stent Rhythm: regular Rate: normal ROS comment: NSTEMI 2012 receiving drug-eluting stent to the mid left circumflex and overlapping LUCAS to OM 2 with residual right ostial D1 stenosis eccentric lesion that was not a culprit and otherwise minor luminal irregularities in the RCA with collaterals from the RCA to the 100% proximal stenosis of the left circumflex which also had left to right and right to left collaterals. - Preserved ejection fraction in 2011 Neuro/Psych - negative ROS Mental Status: alert and oriented GI/Hepatic/Renal (+) GERD, chronic renal disease Endo/Other - negative ROS Abdominal Abdomen: soft. Bowel sounds: normal. PONV RISK SCORE: 1 There were no vitals filed for this visit. SpO2 Readings from Last 1 Encounters: 02/18/25 98% No results found for: WBC , RBC , HGB , HCT , PLT , MCV Allergies[8] STOP BANG: No data recorded NPO Status: No data recorded [1] Past Medical History: Diagnosis Date ??? Actinic keratosis, hx of ??? Elevated PSA 01/15/[address] goode 2017 ??? Esophageal reflux ??? Essential hypertension, benign 11/25/2008 ??? SCC (squamous cell carcinoma), ear 02/17/2021 ??? Septic olecranon bursitis 05/18/2011 [2] Past Surgical History: Procedure Laterality Date ??? CATARACT EXTRACTION ??? COLONOSCOPY 06/10/2004 : diverticulosis ??? COLONOSCOPY 06/10/2014 Diverticulosis; no polyps. ??? ESOPHAGOGASTRODUODENOSCOPY 06/10/2012 normal on PPI rx [3] Allergies Allergen Reactions ??? Other Seasonal Allergies [4] [5] [6] [7] Social History Tobacco Use ??? Smoking status: Never ??? Smokeless tobacco: Never Substance Use Topics ??? Alcohol use: Yes Alcohol/week: 5.8 standard drinks of alcohol Types: 6 Standard drinks or equivalent per week Comment: occ ??? Drug use: No Comment: none [8] Allergies Allergen Reactions ??? Other Seasonal Allergies documented in this encounter Plan of Treatment Not on file documented as of this encounter Visit Diagnoses Not on filedocumented in this encounter Administered Medications Inactive Administered Medications - up to 3 most recent administrations Medication Order MAR Action Action Date Dose Rate Site lactated Ringer's infusion intravenous, Continuous PRN, Starting on Alesha 05/20/25 at 0941, Anesthesia Intraprocedure New Bag 05/20/2025 9:41 AM EST lidocaine (PF) (XYLOCAINE-MPF) 2 % injection injection, As needed, Starting on Alesha 05/20/25 at 0942, Anesthesia Intraprocedure Given 05/20/2025 9:42 AM EST 50 mg propofoL (DIPRIVAN) injection intravenous, As needed, Starting on Alesha 05/20/25 at 0942, Anesthesia Intraprocedure Given 05/20/2025 9:54 AM EST 30 mg Given 05/20/2025 9:51 AM EST 30 mg Given 05/20/2025 9:46 AM EST 20 mg documented in this encounter Additional Health Concerns Assessment Noted Time PHQ-9 Depression Total Score: 0 09/24/19 8:06 PM EDT A fall risk assessment has been complete d for the patient 02/18/2025 12:43 PM EDT documented as of this encounter Care Teams Scale Reclamation Tender Relationship Specialty Start Date End Date Enrico Hawkins PA [address] [place] [id number] PCP - General Internal Medicine 01/03/21 documented as of this encounter
--- NOTE | 2025-05-25 08:37 | A.OFFVIS_ITS ---
Intake Visit Reasons: 1y/ PSA SET ( NO UA ) Intake Note: Patient is present for 1y/PSA Urology Medication:FINASTERIDE,SILDENAFIL,ALFUZOSIN Antibiotic Allergy:NONE Blood Thinner:NONE Account Manager Required: No Allergies Seasonal Allergies Allergy (Mild, Verified 05/25/25 08:38) Unknown HPI Comments Details: Kuldeep is a pleasant male. He is a patient of Dr Hawkins. He is seen for the following urologic conditions - elevated PSA - Lower urinary tract symptoms - erectile dysfunction Yearly follow-up PSA up 1 point Check in six-month with prostate MRI Monotherapy Finasteride - Saturday, Saturday, Saturday Sildenafil still effective for erections - refill requested and provided Elevated PSA with BPH Longstanding BPH Treatment with alfuzosin 10 mg and finasteride No family history of prostate issues PSA that has ranged between 4.5 and 5.5 Prostate biopsy 11/25 negative PSA 11/29 3.9, 08/02 3.9, 06/01 2.2, 10/31 3.2, 06/02 3.1, 05/04 4.1 Erectile Dysfunction Progressive Cardiovascular risk factors include heart attack at age 62, dyslipidemia, hypertensive Is able to obtain but cannot maintain erection Libido normal Uses intermittent sildenafil PFSH Medical History [place] (myocardial infarction) NSTEMI (non-ST elevated myocardial infarction) Actinic keratitis CAD (coronary artery disease) of artery bypass graft Heartburn Hyperlipidemia Sleep apnea Elevated PSA Renal stones Surgical History History of surgery Review of Systems Const Denies chills and Denies fever(s) Card Reports no additional complaints and Denies syncope Resp Denies cough GI Denies abdominal pain and Denies heartburn Reports as per HPI and Denies change in libido Neuro Denies syncope Psych Denies change in libido Endo Denies change in libido Physical Exam Const General: cooperative, healthy appearing, comfortable and no acute distress Orientation/consciousness: patient oriented x3 HEENT Face and sinus: Yes normal facial exam Mouth: moist mucous membranes Neck Neck: Yes normal visual inspection, Yes full ROM and Yes trachea midline Chest Chest palpation & inspection: normal inspection of the chest Resp Effort & Inspection: normal respiratory effort, able to speak in complete sentences and no respiratory distress GI Inspection: Yes normal to inspection Back/Spine/Pelvis Cervical Spine: normal cervical lordosis Thoracic/Lumbar Spine: thoracic and lumbar spine normal to inspection Skin General skin exam: no rashes or lesions noted Neuro General: patient oriented x3, gait normal, tone normal and moves all extremities Extrem General: Yes normal to inspection and Yes capillary refill normal Assessment & Plan Assessment & Plan (1) Elevated PSA: Code(s): R97.20 - Elevated prostate specific antigen [PSA] Category: Medical Plan Six-month follow-up lab work imaging Orders: Orders PSA,Total (Free>4and<10) 6 Months R97.20 - Elevated prostate specific antigen [PSA] MR abdomen wo/w con 6 Months R97.20 - Elevated prostate specific antigen [PSA] Medications: Refilled sildenafil administer 60 minutes before intended activity 100 mg PO ONCE PRN 30 tabs 1RF sexual activity 30 days E11.69 - Type 2 diabetes mellitus with other specified complication, N52.1 - Erectile dysfunction due to diseases classified elsewhere, N52.9 - Male erectile dysfunction, unspecified Patient Instructions: This note is constructed using voice recognition software. While every effort has been made to ensure accuracy weight training instructor errors may have been included. Imaging studies, laboratory and physical exam results were discussed and reviewed in detail. No major barriers to patient understanding were identified. An opportunity to ask questions regarding the treatment plan was provided. All questions were answered. The patient expressed understanding and agreement with the above treatment plan. The patient is aware they should contact our office by phone for worsening of their current condition or the appearance of new urologic symptoms. Compliance is encouraged with any medications and followup testing that is ordered. It is a privilege to participate in the urologic care of your patient. If you have any questions or concerns regarding treatment for the above conditions, or other urologic issues, please do not hesitate to contact me. The office telephone contact is [phone]. Sincerely, Dr Alberto Tadeo MD, [facility] - Urology Compassionate Specialist Care for the Genitourinary System Coding Level of Care Code Est Pt Level 4 (79045) Diagnoses Elevated PSA R97.20
--- OUTSIDE RECORDS SUMMARY | 2025-05-25 08:52 | XMS_ITS | Clinical Summary ---
Author Organization [facility] Prior to 11/07/24 Address [address] [place] [address] Care Team Providers Care Foundry Engineer Name Role Phone Nick Kim MD Primary Care Provider [phone] Allergies No known active allergies Medications Medication Sig Dispensed Refills Start Date End Date Status ATORVASTATIN CALCIUM PO Take by mouth. 0 Active METOPROLOL TARTRATE PO Take by mouth. 0 Active aspirin 81 MG chewable tablet Chew 81 mg by mouth. 0 Active Multiple Vitamins-Minerals (MULTIVITAMIN ADULT PO) Take by mouth. 0 Active nitroglycerin (NITROSTAT) 0.[address] 0.4 mg under the tongue every 5 (five) minutes as needed for chest pain. 0 Active Active Problems Problem Noted Date Diagnosed Date BPH with obstruction/lower urinary tract symptom s Kidney stone Incomplete bladder emptying Poor urinary stream Social History Tobacco Use Types Packs/Day Years Used Date Smoking Tobacco: Never Assessed Sex and Gender Information Value Date Recorded Sex Assigned at Not on file Gender Identity Not on file Sexual Orientation Not on file Plan of Treatment Health Maintenance Due Date Last Done Comments Hepatitis C Screening 1955 COVID-19 Vaccine (#1) 1957 Depression Screening 1969 Preventative Health Evaluation 1975 DTap / Tdap / Td (1 - Tdap) 1976 Colon Cancer Screening (Colonoscopy) 2002 Shingrix-Zoster Vaccine (1 of 2) 2007 Fall Risk Assessment 2022 Pneumococcal Vaccine (1 of 1 - PCV) 2022 Influenza Vaccine (#1) 2025 RSV Adult > 60+ Yrs or Pregn ant (1 - 1-dose 75+ series) 2032 Hepatitis B Vaccines Aged Out No long er eligible based on patient's age to complete this topic RSV Ped < 20 months Aged Out No longe r eligible based on patient's age to complete this topic Care Teams Foundry Engineer Relationship Specialty Start Date End Date Nick Kim MD PCP - General Directional Drill Operator 10/03/17
--- OUTSIDE RECORDS SUMMARY | 2025-05-25 08:53 | XMS_ITS | Encounter Summary ---
Author Organization [facility] Address [address] [place] [address] Care Team Providers Care Oxygen Therapy Teacher Name Role Phone Enrico Hawkins Primary Care Provider [phone] Encounter Details Date Type Department Care Team ([facility] st Contact Info) Description 05/21/2025 Results Follow-Up Gastroenterology - [address] [address] Spencer Brownlee MD [address] [address] Social History Tobacco Use Types Packs/Day Years [...] care for your loved ones. For example, childbirth educator or elderly care for an older adult? 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
--- OUTSIDE RECORDS SUMMARY | 2025-05-25 08:53 | XMS_ITS | Clinical Summary ---
Author Organization [facility] [address] [place] [address] Address [address] [place] [address] Phone Care Team Providers Care Traffic Control Signaler Name Role Phone Enrico Hawkins Primary Care Provider [phone] Allergies Active Allergy Reactions Criticality Noted Date Comments Other 10/07/2015 Seasonal Allergies Medications ibuprofen (ADVIL,MOTRIN) 800 mg tablet TAKE 1 TABLET BY MOUTH EVERY 8 HOURS NEEDED FOR PAIN 90 tablet 1 4 Active fluticasone propionate (FLONASE) 50 mcg/actuation nasal spray 4 Active finasteride (PROSCAR) 5 mg tablet 1 Tab mon, wens, fri 4 Active acetaminophen (TYLENOL 8 HOUR) 650 mg 8 hr tablet Take 1 tablet (650 mg total) by mouth every 8 (eight) hours if needed. 4 Active FA/niacinamide/c upric ox/Zn ox (TL NICOTINAMIDE ORAL) Take by mouth. Take one capsule twice daily Active vit C/E/Zn/coppr/lut ein/zeaxan (PRESERVISION AREDS-2 ORAL) Take by mouth daily. Active cetirizine (ZyrTEC) 10 mg tablet Take 1 tablet (10 mg total) by mouth 1 (one) time each day. 3 Active omeprazole (PriLOSEC) [address] capsule every other day. 4 times a week 8 Active aspirin 81 mg EC tablet Take 1 tablet (81 mg total) by mouth 1 (one) time each day. 2 Active mv-min/folic/vit K/lycop/coQ10 (DAILY MULTIVITAMIN ORAL) 1 po qd Active UNABLE TO FIND CPAP Historical (HISTORICAL CPAP) Sig - Route: Inhale 7 cm into the lungs at bedtime. Via nasal mask, SMS - Inhalation Active atorvastatin (LIPITOR) 80 mg tablet Take 1 tablet (80 mg total) by mouth 1 (one) time each day. 90 tablet 3 5 Active diclofenac (VOLTAREN) 1 % topical gel Apply 2 g topically 2 (two) times a day. 180 g 11 5 Active metoprolol succinate (TOPROL-XL) 25 mg 24 hr tablet Take 1 tablet (25 mg total) by mouth 1 (one) time each day. Do not crush or chew. 90 each 2 5 Active tiZANidine (ZANAFLEX) 4 mg tablet Take 1 tablet (4 mg total) by mouth 3 (three) times a day if needed for muscle spasms. 30 tablet 5 Active losartan (Cozaar) 25 mg tablet Take 1 tablet (25 mg total) by mouth 1 (one) time each day. 30 each 5 5 Active buPROPion SR (WELLBUTRIN SR) 200 mg 12 hr tablet TAKE 1 TABLET BY MOUTH TWICE DAILY 180 tablet 3 5 Active montelukast (SINGULAIR) 10 mg tablet TAKE 1 TABLET BY MOUTH EVERYDAY AT BEDTIME 90 tablet 1 5 Active azelastine (ASTELIN) 137 mcg (0.1 %) nasal spray ADMINISTER 2 SPRAYS INTO EACH NOSTRIL 2 TIMES A DAY. 30 mL 1 5 Active polyethylene glycol (Golytely) 236-22.74-6.74 -5.86 gram solution Take 4L by mouth once for one dose. May substitue any PEG. Starting at 2PM the day before your procedure drink 1 8oz glasses at your own pace until you complete half of the gallon. Finish 2nd half of the gallon at 8PM. 4000 mL 5 Active bisacodyL (DULCOLAX) 5 mg EC tablet Take 2 tablets by mouth right before beginning bowel prep. See instructions provided by the office 2 tablet 5 Active Active Problems Problem Noted Date Diagnosed Date Chronic interstitial lung disease 11/26/2024 Seasonal allergic rhinitis 12/18/2023 Left leg paresthesias 12/10/2023 Benign prostatic hyperplasia with lower urinary tract symptoms 10/10/2022 SCC (squamous cell carcinoma), ear 02/17/2021 Overview (05/22/2024): New alex derm 2020 Elevated PSA 01/15/2018 Overview (05/22/2024): Had Neg biopsy dr goode 2018 Renal stone 06/05/2016 Overview (05/22/2024): Passed stone CAD (coronary artery disease) 05/12/2012 Overview (05/22/2024): -Anginal equivalent of scapular pain with his WA -Status post non-ST elevation WA in 2011 with cardiac cath showing normal left main, minor luminal irregularities of the LAD with a tight ostial D1 stenosis of 99%-eccentric lesion that was non-culprit, minor luminal irregularities of the RCA with collaterals from the RCA into the circumflex territory; culprit vessel being the left circumflex with 100% proximal stenosis with left to left and hfopf-bu-phfa collaterals with an 80% lesion of the OM 2; status post drug-eluting stent to the mid left circumflex as well as an overlapping drug-eluting stent into the OM2 (report states OM1 but the body of the report states OM 2) -Most recent echocardiogram in April 2012 showing preserved ejection fraction of 60% without regional wall motion abnormalities, no significant valve disease, normal RV size and systolic function, normal LV diastolic function -Status post exercise nuclear stress test for atypical, nonexertional chest pain in November 2012-he exercised for 12-1/2 minutes to 102% of max predicted heart rate with normal perfusion and normal ejection fraction and no ischemic ECG changes -Had a Holter monitor in 2013 with symptoms of lightheadedness correlating to sinus rhythm with single APCs and PVCs without any other ectopy Last Assessment & Plan: The patient has historical stenting to the left circumflex and OM 2 with residual tight ostial D1 lesion managed medically. Most recently, he had sounds to be a vasovagal syncopal episode which prompted exercise rest echocardiogram revealing ischemia in apical lateral wall. However, this is an area of his prior stenting. The patient reported some of his vague left sided chest, scapular, and elbow sensation in office today. EKG obtained and was sinus bradycardia with a heart rate of [address]/T wave changes. The patient tells me that he feels as though he would have been able to walk considerably further during his stress echocardiogram. By the testing staff. Case reviewed with Dr. Zafar, who was in the office during the patient's visit. Given that the patient is able to complete a significant level of exercise on his own walking with his and golf, without clear-cut exertional anginal symptoms, will obtain a symptom limited exercise stress test on full medication regimen allowing the patient to walk at least to the sensation proceed exertion when he walks on the golf course up and down the hills. Preferably, if possible, would asked the patient to push himself just a little bit beyond that to evaluate for provokable anginal symptoms and/or EKG changes. The patient and his (who was present via telephone during this part of our conversation) understand this plan and agree. I will notify the patient of the results once they are available to me. In the meantime, continue aspirin, beta-geronimo and statin. Assessment & Plan (09/14/2024 9:55 AM EDT): No new anginal symptoms at the appointment today. Patient should stay on the 81 mg baby aspirin, metoprolol, and high-dose atorvastatin. Instructed to call 911 or go to the emergency room should the patient begin to experience chest pain or pressure lasting greater than 10 minutes does not resolve with rest. Orders: ECG 12 lead Septic olecranon bursitis 05/18/2011 Overview (05/22/2024): 2010 Sleep apnea 02/28/2009 Overview (05/22/2024): Worse On back Hyperlipidemia 11/26/2008 Overview (11/26/2024): Assessment & Plan (09/14/2024 9:55 AM EDT): Continue on high-dose atorvastatin. Would like patient's LDL to be at 70 or below. Most recent value on 04/2024 revealed an LDL of 85. Would like the patient to improve his diet and continue to exercise, can redraw and 3 months. Essential hypertension, benign 11/25/2008 Overview (11/26/2024): Assessment & Plan (09/14/2024 9:55 AM EDT): Well-controlled the appointment today. I am going to have him continue his current medication regiment. Actinic keratosis 10/17/2006 Heartburn 10/10/2006 Pain in limb 10/10/2006 Encounters Date Type Department Care Team Description 05/21/2025 Results Follow-Up Gastroenterology - [address] [facility] [address] [facility] [address] [place] [id number] Spencer Brownlee MD 05/20/2025 9:37 AM EST Anesthesia Event [facility] [address] [place] [id number] Juan Luis Walton MD 05/20/2025 7:55 AM EST - 05/20/2025 11:59 PM EST Hospital Encounter [facility] [address] [place] [address] Juan Luis Walton MD Weinstein, Peter J, MD Abrokwah, Foster Myles G, [facility] Colon cancer screening Discharge Disposition: Home or Self Care 04/14/2025 8:30 AM EST Office Visit Orthopedic Surgery - [place] [address] [facility] [address] [place] [id number] Madi Woodall PA Right rotator cuff tendinitis (Primary Dx); Subacromial bursitis of right shoulder joint 03/30/2025 11:30 AM EDT Treatment Outpatient Rehabilitation [address] [phone] Isabel Muñoz, MEDARDO Right rotator cuff tendinitis (Primary Dx); Subacromial bursitis of right shoulder joint 03/25/2025 Telephone Gastroenterology - [address] [place] [address] Spencer Brownlee MD 03/23/2025 11:30 AM EDT Treatment Outpatient [address] [phone] Isabel Muñoz, CRAFT COORDINATOR Right rotator cuff tendinitis (Primary Dx); Subacromial bursitis of right shoulder joint 03/18/2025 1:00 PM EDT Treatment Outpatient [facility] - [address] [phone] Isabel Muñoz, CRAFT COORDINATOR Right rotator cuff tendinitis (Primary Dx); Subacromial bursitis of right shoulder joint 03/16/2025 11:30 AM EDT Treatment Outpatient [address] [phone] Isabel Muñoz, CRAFT COORDINATOR Right rotator cuff tendinitis (Primary Dx); Subacromial bursitis of right shoulder joint; Acute midline low back pain with right-sided sciatica; Chronic right shoulder pain 03/03/2025 12:00 PM EDT Evaluation Outpatient [facility] - [address] [phone] Enrico Orellana, PT Right rotator cuff tendinitis; Subacromial bursitis of right shoulder joint 03/03/2025 Plan of Care Documentation Outpatient [facility] - [address] [phone] from Last 3 Months Immunizations Immunization Administration Dates Next Due H1N1 Inj Preservative Free 07/20/2009 Influenza Quadravalent, MDCK , 0.5ml, preservative free (Flucelvax) 6mo and older 03/16/2022,04/07/2020 Influenza trivalent, 0.5mL ( Fluad) 65yo and older 03/31/2024,04/15/2023 Influenza trivalent, 0.5mL ( Fluzone High-dose) 65yo and older 02/09/2025,04/15/2023 Influenza trivalent, 0.5mL, preservative free (Fluarix; FluLaval; Fluzone) ages 6mo and older (Afluria) 3 years and older 04/11/2021,04/27/2019,06/18/2018,2016,03/03/2013,05/18/2011,02/28/2009 Influenza, Unspecified 06/18/2018,03/27/2017 Pneumococcal conjugate 20 va lent (Prevnar 20, PCV 20) 2mo and older 10/10/2022 Td Tetanus diptheria (Tdvax) 7yo and older 03/16/2022 Td, Unspecified 07/15/2003 Tdap Tetanus diptheria acell ular pertussis (Boostrix; Adacel) 7yo and older 11/09/2011 Zoster Live 06/18/2018 Zoster recombinant (Shingrix ) 19yo and older 04/27/2019,06/18/2018 Surgical History Surgery Date Site/Laterality Comments COLONOSCOPY 06/10/2004 : diverticulosis ESOPHAGOGASTRODUODENOSCOPY 06/10/2012 normal on PPI rx COLONOSCOPY 06/10/2014 Diverticulosis; no polyps. CATARACT EXTRACTION CORONARY ANGIOPLASTY WITH ST ENT PLACEMENT Medical History Medical History Date Comments Esophageal reflux Essential hypertension, benign 11/25/2008 Septic olecranon bursitis 05/18/2011 Actinic keratosis, hx of Elevated PSA 01/15/2018 Had Neg biopsy d r goode 2017 SCC (squamous cell carcinoma), ear 02/17/2021 Heart attack (CMS/HCC V24, CMS/HCC V28) Interstitial lung disease (C MS/HCC V24, CMS/HCC V28) CHRONIC Hyperlipidemia CAD (coronary artery disease) Family History Medical History Relation Name Comments Lung cancer Father smoker Blindness Maternal Grandfather Macular degeneration Maternal Grandfather Blindness Mother Cataracts Mother Heart failure Mother Hyperlipidemia Mother Macular degeneration Mother Glaucoma Paternal Grandmother Basal cell carcinoma Sister 1 Marisela Bladder Cancer Sister 1 Marisela smoker Breast cancer Sister 1 Marisela Hyperlipidemia Sister 2 Stephan heart dz Hypertension Sister 3 Ladi heart dz Strabismus Neg Hx Relation Name Status Comments Father (Age 58) lung cance r Maternal Grandfather Mother (Age 96) bowal perf oration - diverticulitis Paternal Grandmother Sister 1 Marisela Alive bladder cancer, breast cancer Sister 2 Stephan Alive Sister 3 Ladi Alive Social History Tobacco Use Types Packs/Day Years Used Date Smoking Tobacco: Never Smokeless Tobacco: Never Tobacco Cessation:Counseling Given: Not Answered Alcohol Use Standard Drinks/Week Comments Yes 8 [...] for your loved ones. For example, child welfare caseworker or elderly care for an older adult? 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 Not on file Not on file Not on file Last Filed Vital Signs Vital Sign Reading [...] Mass Index 27.12 05/20/2025 8:56 AM EST Plan of Treatment Health Maintenance Due Date Last Done Comments RSV Immunization Adult Patients (1 - Risk 50-74 years 1-dose series) 2007 COVID-19 Vaccine ( season) 2025 04/26/2022, 05/01/2021, 10/11/2020, Additional history exists Social Influencers of Health Screening 09/23/2025 09/23/2024 Hypertension/CHF/CAD Annual BMP Blood Test 02/16/2026 02/16/2025, 04/30/2024, 07/18/2023 Falls Risk Assessment 05/20/2026 05/20/2025, 025 Cholesterol Screening (Lipid Panel) 02/16/2030 02/16/2025, 04/30/2024, 07/18/2023 Colorectal Cancer Screening: Colonoscopy 05/20/2030 05/20/2025, 05/19/2015, 05/19/2015 DTaP,Tdap,and Td Vaccines (4 - Td or Tdap) 03/16/2032 03/16/2022, 11/09/2011, 07/15/2003 Hepatitis C Screening Completed 04/28/2013 Zoster Vaccines Completed 04/27/2019, 02/2019, 06/18/2018 Pneumococcal Vaccine: 50+ Years Completed 10/10/2022 Depression Screening Completed 09/23/2024 Influenza Vaccine Completed 02/09/2025, , 04/15/2023, Additional history exists HIB Vaccines Aged Out No longer eligi ble based on patient's age to complete this topic HPV Vaccines Aged Out No longer eligi ble based on patient's age to complete this topic Hepatitis A Vaccines Aged Out No long er eligible based on patient's age to complete this topic Hepatitis B Vaccines Aged Out No long er eligible based on patient's age to complete this topic IPV Vaccines Aged Out No longer eligi ble based on patient's age to complete this topic MMR Vaccines Aged Out No longer eligi ble based on patient's age to complete this topic Meningococcal ACWY Vaccine Aged Out N o longer eligible based on patient's age to complete this topic Meningococcal B Vaccine Aged Out No l onger eligible based on patient's age to complete this topic RSV Immunization Patients Under 20 months Aged Out No longer eligible based on patient's age to complete this topic Varicella Vaccines Aged Out No longer eligible based on patient's age to complete this topic Procedures Procedure Name Priority Date/Time Associated Diagnosis Comments COLONOSCOPY Routine 05/20/2025 9:57 AM EST Colon cancer screening TISSUE EXAM Routine 05/20/2025 9:46 AM EST Colon cancer screening COMPREHENSIVE METABOLIC PANEL Routine 02/16/2025 8:40 AM EDT Routine general medical examination at a [facility] care facility Benign prostatic hyperplasia with lower urinary tract symptoms, symptom details unspecified Coronary artery disease due to lipid rich plaque Elevated PSA Essential hypertension, benign Hyperlipidemia, unspecified hyperlipidemia type Screening for malignant neoplasm of colon LIPID PANEL WITH REFLEX TO DIRECT LDL Routine 02/16/2025 8:40 AM EDT Routine general medical examination at a health care facility Benign prostatic hyperplasia with lower urinary tract symptoms, symptom details unspecified Coronary artery disease due to lipid rich plaque Elevated PSA Essential hypertension, benign Hyperlipidemia, unspecified hyperlipidemia type Screening for malignant neoplasm of colon HEPATITIS C SCREENING Routine 04/28/2013 from Last 3 Months or Most Recently Relevant to Health Maintenance Results * COL[facility]OSCOPY [facility] (05/20/2025 9:57 AM EST) Anatomical Region [...] for surveillance. Narrative 05/20/2025 9:58 AM EST [facility] GI Patient Name: Lester Lima Procedure Date: 05/20/2025 9:34 AM Date [...] retroflexion views. Procedure Code(s): --- Professional --- 52836, Colonoscopy, flexible; with removal of tumor(s), polyp(s), or other lesion(s) by snare technique [id number], 59, Colonoscopy, flexible; with biopsy, single or multiple Diagnosis Code(s): --- Professional --- Z12.11, Encounter for screening for malignant neoplasm of colon D12.0, Benign neoplasm of cecum K57.30, Diverticulosis of large intestine without perforation or abscess without bleeding CPT copyright 2020 [employer]. All rights reserved. The codes documented in this report are preliminary and upon sticker operator review may be revised to meet current compliance requirements. Spencer Brownlee MD 05/20/2025 9:58:33 AM This report has been signed electronically.Spencer Brownlee MD Number of Addenda: 0 Note Initiated On: 05/20/2025 9:34 AM Scope In: Scope Out: Endoscopy Department at [facility] - [address] [place] [phone] Procedure Note Spencer Brownlee MD - 05/20/2025 [facility] GI Patient Name: Lester Lima Procedure Date: 05/20/2025 9:34 AM Date [...] retroflexion views. Procedure Code(s): --- Professional --- 76821, Colonoscopy, flexible; with removal of tumor(s), polyp(s), or other lesion(s) by snare technique [id number], 59, Colonoscopy, flexible; with biopsy,single or multiple Diagnosis Code(s): --- Professional --- Z12.11, Encounter for screening for malignantneoplasm of colon D12.0, Benign neoplasm of cecum K57.30, Diverticulosis of large intestine without perforation or abscess without bleeding CPT copyright 2020 [employer]. All rights reserved. The codes documented in this report are preliminary and upon sticker operator reviewmay be revised to meet current compliance requirements. Spencer Brownlee MD 05/20/2025 9:58:33 AM This report has been signed electronically.Spencer Brownlee MD Number of Addenda: 0 Note Initiated On: 05/20/2025 9:34 AM Scope In: Scope Out: Endoscopy Department at [facility] - [address] [place] [id number] IMPRESSION: - One 2 mm polyp in the cecum. Biopsied. - One 6 mm polyp in the cecum, removed with a cold snare. Resected and retrieved. - Diverticulosis in the sigmoid colon and in the descending colon. - The examination was otherwise normal on directand retroflexion views. Recommendation: - Await pathology results. - Repeat colonoscopy in 5 years for surveillance. Spencer Brownlee MD GI~PROCEDURE ORDERABLES Fin al Result * Tissue exam (05/20/2025 9:46 AM EST) Final Diagnosis Cecum, polyps x 2: Tubular adenomas, fragmented. 05/21/2025 2:17 PM EST [facility] at 1416 EST Gross Description [...] multiple levels. Av/DG 05/21/2025 2:17 PM EST [facility] Disclaimer Unless otherwise specified, all tissue is 10% NB formalin fixed and paraffin embedded. 05/21/2025 2:17 PM EST [facility] Tissue Cecum structure / Unknown 05/20/2025 9:46 AM EST 05/20/2025 10:54 AM EST Spencer Brownlee MD LAB PATHOLOGY ORDERABLES Fi nal Result [facility] [address] [place] [address], * Lipid panel with reflex to direct LDL (02/16/2025 8:40 AM EDT) Cholesterol 135 0 - 200 mg/dL LAB CHEMISTRY METHOD 02/16/2025 10:40 AM EDT [facility] Triglycerides 83 0 - 150 mg/dL LAB CHEMISTRY METHOD 02/16/2025 10:40 AM EDT [facility] HDL 52 >=40 mg/dL LAB CHEMISTRY METHOD 02/16/2025 10:40 AM [facility] LDL Calculated 66 0 - 100 mg/dL LAB CHEMISTRY METHOD 02/16/2025 10:40 AM T [facility] Comment:Estimated LDL Calcul ated using equation: Total cholesterol - HDL cholesterol - (Triglycerides/5) VLDL Cholesterol Kwabena 16.6 mg/dL LAB CHEMISTRY METHOD 02/16/2025 10:40 AM T [facility] Non HDL Chol. (LDL+VLDL) 83 <145 mg/dL LAB CHEMISTRY METHOD 02/16/2025 10:40 AM [facility] Chol/HDL Ratio 2.6 0.0 - 4.4 LAB CHEMISTRY METHOD 02/16/2025 10:40 AM [facility] Blood Venous blood specimen / Unknown Venipuncture / Unknown 02/16/2025 8:40 AM EDT 02/16/2025 8:40 AM EDT Enrico BALLARD LAB BLOOD ORDERABLES Stephania l Result [facility] [address] [place] [address], * (ABNORMAL) Comprehensive metabolic panel (02/16/2025 8:40 AM EDT) Sodium 138 133 - 145 mmol/L LAB CHEMISTRY METHOD 02/16/2025 10:40 AM [facility] Potassium 4.0 3.5 - 5.5 mmol/L LAB CHEMISTRY METHOD 02/16/2025 10:40 AM [facility] Chloride 107 96 - 110 mmol/L LAB CHEMISTRY METHOD 02/16/2025 10:40 AM [facility] CO2 25 21 - 32 mmol/L LAB CHEMISTRY METHOD 02/16/2025 10:40 AM [facility] Anion Gap 6 3 - 11 LAB CHEMISTRY METHOD 02/16/2025 10:40 AM [facility] Glucose 112(H) 70 - 100 mg/dL LAB CHEMISTRY METHOD 02/16/2025 10:40 AM [facility] BUN 11 5 - 25 mg/dL LAB CHEMISTRY METHOD 02/16/2025 10:40 AM [facility] Creatinine 0.94 0.70 - 1.30 mg/dL LAB CHEMISTRY METHOD 02/16/2025 10:40 AM [facility] eGFR 89 >=60 mL/min/1. 73m2 LAB CHEMISTRY METHOD 02/16/2025 10:40 AM [facility] Comment:Calculation based on the Chronic Kidney Disease Epidemiology Collaboration (CKD-EPI) equation refit without adjustment for race. BUN/Creatinine Ratio 11.7 LAB CHEMISTRY METHOD 02/16/2025 10:40 AM [facility] Calcium 9.4 8.5 - 10.5 mg/dL LAB CHEMISTRY METHOD 02/16/2025 10:40 AM [facility] AST (SGOT) 28 10 - 42 unit/L LAB CHEMISTRY METHOD 02/16/2025 10:40 AM [facility] ALT (SGPT) 64(H) 10 - 60 unit/L LAB CHEMISTRY METHOD 02/16/2025 10:40 AM [facility] Alkaline Phosphatase 61 42 - 121 unit/L LAB CHEMISTRY METHOD 02/16/2025 10:40 AM [facility] Total Protein 7.1 6.0 - 8.0 g/dL LAB CHEMISTRY METHOD 02/16/2025 10:40 AM [facility] Albumin 4.3 3.2 - 5.0 g/dL LAB CHEMISTRY METHOD 02/16/2025 10:40 AM [facility] Total Bilirubin 0.7 0.0 - 1.4 mg/dL LAB CHEMISTRY METHOD 02/16/2025 10:40 AM [facility] Blood Venous blood specimen / Unknown Venipuncture / Unknown 02/16/2025 8:40 AM EDT 02/16/2025 8:40 AM EDT Enrico BALLARD LAB BLOOD ORDERABLES Stephania huang Result [facility] [address] [place] [address], * Hepatitis C Screening (04/28/2013) [facility] Hepatitis C Screening abstracted Historical Provider HEALTH MAINTENANCE Final Result from Last 3 Months or Most Recently Relevant to Health Maintenance Insurance [employer] Care Teams Traffic Control Signaler Relationship Specialty Start Date End Date Enrico Hawkins PA [address] [place] [id number] PCP - General Internal Medicine 01/03/21
--- OUTSIDE RECORDS SUMMARY | 2025-05-25 08:53 | XMS_ITS ---
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 Overview (05/22/2024): New [facility] derm 2020 Elevated PSA 01/15/2018 Overview (05/22/2024): Had Neg biopsy dr goode 2017 Renal stone 06/05/2016 Overview (05/22/2024): Passed stone CAD (coronary artery disease) 05/12/2012 Overview (05/22/2024): -Anginal equivalent of scapular pain with his IA -Status post non-ST elevation IA in 2011 with cardiac cath showing normal left main, minor luminal irregularities of the LAD with a tight ostial D1 stenosis of 99%-eccentric lesion that was non-culprit, minor luminal irregularities of the RCA with collaterals from the RCA into the circumflex territory; culprit vessel being the left circumflex with 100% proximal stenosis with left to left and [id number] collaterals with an 80% lesion of the [...] 10/17/2006 Heartburn 10/10/2006 Pain in limb 10/10/2006 Current Treatment and Therapy Plans No current plan information found. Past Treatment and Therapy Plans No past plan information found. Lifetime Dose Tracking * Chemical Lifetime Dose Automatic Entry Manual Entr y CTDIvol 13.39 mGy 13.39 mGy 0 mGy
--- OUTSIDE RECORDS SUMMARY | 2025-05-25 08:53 | XMS_ITS ---
Author Name [facility] Organization Unknown Care Team Organization Name Specialty Phone Email Start Date End Da te [facility] Enrico Hawkins Primary Care 02/14/2023 [facility] JHONY Primary Care 06/18/2022 01/27/2024 [facility] Jennifer Ca Primary Care 04/17/2022 01/27/2024
== END 2025-05-25 09:36 | disposition home or self-care (01) ==
LOC: HO.HUSH 08:27
PROVIDERS: PCP Physician Assistant Medical; Visit Provider Urology
DX: R97.20 Elevated prostate specific antigen [PSA] (principal)
CPT/HCPCS: 99214